=== PATIENT | male | born 1945 | race Caucasian/White ===

== ENCOUNTER → 2018-05-29 09:14 | Outpatient (CLI) | payer OTHER, MEDICARE, SELFPAY ==
[2018-05-29 08:57] VITALS: BMI 39.4
--- NOTE | 2018-05-29 09:17 | RAD_ITS ---
STUDY: X-RAY CHEST REASON FOR EXAM: Male, 72 years old. Posterior right-sided chest pain and cough. Shortness of breath. TECHNIQUE: PA and lateral views of the chest. COMPARISON: None. FINDINGS: The lungs are clear and expanded. There is no demonstrated pleural abnormality. Normal size heart. Normal mediastinum and david. Normal visualized pulmonary arteries. Normal visualized aortic arch and descending thoracic aorta. Normal visualized thoracic spine. Normal visualized ribs, clavicles, and shoulders. There is no demonstrated abnormality of the visualized soft tissue structures of the upper abdomen. RAD/Chest PA and Lateral IMPRESSION: Normal x-ray examination of the chest. Electronically Signed: Ivan Campbell, at 9:55 EDT , Service support ,
== END ==
PROVIDERS: Family Provider Family Medicine; PCP Family Medicine; Referring Provider Physician Assistant Surgical; Visit Provider Physician Assistant Surgical
DX: J20.9 Acute bronchitis, unspecified (principal)
CPT/HCPCS: 71046

== ENCOUNTER → 2022-01-17 | Outpatient (CLI) | payer OTHER, MEDICARE, SELFPAY ==
[2022-01-17 15:56] LABS: PSA,Total - Annual Screen 4.44 ng/mL (0.00-4.00)
== END | disposition home or self-care (01) ==
LOC: MTLAB 12:42
PROVIDERS: PCP Family Medicine; Referring Provider Urology; Visit Provider Urology
DX: N40.1 Benign prostatic hyperplasia with lower urinary tract symptoms (principal)
CPT/HCPCS: 36415; 84153; G0103